=== PATIENT | female | born 1950 | race Caucasian/White ===

== ENCOUNTER → 2020-05-23 12:22 | Outpatient (CLI) | payer OTHER, SELFPAY ==
--- NOTE | ~2020-05-23 | XR_ITS ---
XR hip RT 2V w AP pelvis DATE: 05/23/2020 12:39 INDICATION: Right groin pain for 2 months, increasing over the past week TECHNIQUE: AP pelvis. AP and lateral views of right hip COMPARISON: None FINDINGS: No pelvic fracture or bone destruction is detected. The pubic symphysis and sacroiliac join ts are intact. There is bilateral hip osteoarthritis, greater on the right. There is bilateral hip joint chondrocalcinosis. Osteopenia. No fracture, dislocation, avascular necrosis or bone destruction of the right hip is detected. IMPRESSION: Bilateral hip osteoarthritic, right greater than left Bilateral hip joint chondrocalcinosis Osteopenia Reviewed, dictated and finalized at location B.
== END ==
PROVIDERS: PCP Physician Assistant; Visit Provider Physician Assistant
DX: M16.0 Bilateral primary osteoarthritis of hip (principal); M85.851 Other specified disorders of bone density and structure, right thigh; M85.852 Other specified disorders of bone density and structure, left thigh
CPT/HCPCS: 73502

== ENCOUNTER 2020-07-27 08:02 | Outpatient (CLI) | payer OTHER, SELFPAY ==
--- NOTE | ~2020-07-27 | XR_ITS ---
EXAMINATION: XR chest 2V DATE: 07/27/2020 09:00 INDICATION: Hypertension TECHNIQUE: PA and lateral views of the chest were obtained. COMPARISON: Chest radiograph dated 11/02/2008 FINDINGS: The lungs remain clear with no focal airspace opacities, pulmonary edema, pleural effusion or pneumot horax. Cardiomegaly. Three lead pacemaker/AICD seen with leads projecting over the expected locations of the right atrial appendage, apex of the right ventricle and overlying the left ventricle likely h aving traversed the coronary sinus. Mild thoracic spondylosis with minimal anterior wedging of a coup le mid thoracic vertebral bodies. IMPRESSION: 1. Cardiomegaly. No acute cardiopulmonary disease. Reviewed, dictated and finalized at location A.
[2020-07-27 08:58] LABS: Basophils Absolute Auto 0.1 K/mm3 (0.0-0.1); Eosinophils Absolute Auto 0.2 K/mm3 (0-0.3); Eosinophils Percent Auto 2.8 % (0-4.4); Hematocrit 37.2 % (37.0-47.0); Immature Granulocyte Absolute 0.01 K/mm3 (0.00-0.031); Immature Granulocyte Percent A 0.1 % (0-0.5); Lymphocytes Absolute Auto 2.37 K/mm3 (0.9-3.2); Lymphocytes Percent Auto 34.5 % (18.3-44.2); Mean Corpuscular HGB Conc 32.3 g/dl (32-36); Mean Corpuscular Hemoglobin 29.9 pg (26-34); Mean Corpuscular Volume 92.5 fl (80-100); Mean Platelet Volume 10.1 fl (7.4-10.4); Monocytes Absolute Auto 0.6 K/mm3 (0.1-0.6); Monocytes Percent Auto 8.5 % (2.6-8.5); Neutrophils Absolute Auto 3.6 K/mm3 (1.3-6.7); Neutrophils Percent Auto 53.1 % (45.5-73.1); Platelet Count Result 234 k/mm3 (150-375); Red Blood Count 4.02 M/mm3 (4.2-5.4); Red Cell Distribution Width 14.2 % (11.5-14.5); White Blood Count 6.9 K/mm3 (4.5-10.0)
[2020-07-27 09:20] LABS: Albumin Level 4.5 g/dL (3.5-5.1); Anion Gap 8 mmol/L (8-16); Blood Urea Nitrogen 34 mg/dL (7-17); Calcium 9.6 mg/dL (8.4-10.2); Carbon Dioxide 32 mmol/L (22-30); Chloride 97 mmol/L (98-107); Estimated Glomerular Filt Rate 49; Glucose 93 mg/dL (65-105); Potassium 4.2 mmol/L (3.4-5.0); Sodium 137 mmol/L (137-145)
[2020-07-27 09:36] LABS: Urine Cotinine NEGATIVE
== END 2020-07-27 08:03 | disposition home or self-care (01) ==
LOC: ANHSURGERY 08:04
PROVIDERS: PCP Physician Assistant; Visit Provider Orthopaedic Surgery
DX: M16.11 Unilateral primary osteoarthritis, right hip (principal); Z01.818 Encounter for other preprocedural examination; I51.7 Cardiomegaly; I10 Essential (primary) hypertension
CPT/HCPCS: 71046; 80048; 80307; 82040; 83036; 85025; 86850; 86900; 86901; 87070

== ENCOUNTER 2020-08-04 02:09 | Outpatient (CLI) | payer OTHER, SELFPAY ==
[2020-08-04 18:25] LABS: SARS-CoV-2 RNA PCR Negative
== END 2020-08-04 02:10 | disposition home or self-care (01) ==
LOC: ANHCOVIDDT 02:09
PROVIDERS: PCP Physician Assistant; Visit Provider Orthopaedic Surgery
DX: Z01.812 Encounter for preprocedural laboratory examination (principal); Z20.828 Contact with and (suspected) exposure to other viral communicable diseases
CPT/HCPCS: 87635; C9803; U0003

== ENCOUNTER 2020-08-09 09:27 | Observation (INO) | payer OTHER, SELFPAY ==
[2020-07-27 08:23] VITALS: BP 104/64; PULSE 74; RESP 20; TEMP 37.1; O2SAT 99
[2020-07-27 08:58] VITALS: BMI 25.8
--- NOTE | 2020-08-04 10:25 | PM.IMHP ---
H&P: HPI History of Present Illness Date/Time: 08/04/20 10:25 Chief complaint: OA right hip Narrative: Ely Renteria is a 70 year old female pt of Dr Brandon who presents today for an anterior right total hip arthroplasty. She has been having increasing pain and soreness in the right hip over the course of the last 4-5 months. She is typically very active individual but unfortunately due to the pain from the severe arthritis in the right hip this has been keeping her from a lot of daily activities. She has tried using a cane without improvement. She is unable take anti-inflammatories due to a cardiac history. She is miserable with regard to pain in the right hip. She has severe arthritis in the hip and at this point feel she would rather proceed with total hip arthroplasty rather continue nonsurgical treatment. Review of Systems Review of Systems: All systems reviewed & are unremarkable except as noted in HPI and below [facility] Social History Social History Smoking status: Former smoker Second hand tobacco smoke exposure: No Additional smoking assessment comments: 1PK/DAY/5YRS QUIT 2014 Substance use: never Spiritual care concerns: No Meds Home Medications and Allergies Home Medications Medication Instructions Recorded Confirmed Type aspirin [Aspir-81] 81 mg PO QAM 07/27/20 07/27/20 History atorvastatin 40 mg PO QAM 07/27/20 07/27/20 History carvedilol 6.25 mg PO QAM 07/27/20 07/27/20 History furosemide 40 mg PO QAM 07/27/20 07/27/20 History lisinopril 10 mg PO QAM 07/27/20 07/27/20 History Allergies Allergy/AdvReac Type Severity Reaction Status Date / Time Penicillins Allergy Mild rash Unverified 07/27/20 08:18 Exam Narrative: Exam Narrative: 70-year-old female very alert pleasant no distress. She is 5 ft 3 154 lb. She walks with a pronounced limp. Has no edema in either lower extremity. 2+ dorsalis pedis pulse in the right foot. She has prominent venous stasis skin changes in the anterior aspects of both tibias. Skin around the hip is normal. She has flexion of the right hip to 110?, internal rotation to 15? and external rotation is 30? all causing her moderate anterior and anterior medial groin pain. Stinchfield maneuver causes her pain extending into the proximal medial thigh. She has normal abduction strength in lateral position. She has severe tenderness over trochanteric bursa. Her right leg looks about 4 mm shorter than the left well leg spine. Resp: Auscultation: clear to auscultation bilaterally Cardio: Rate: regular rate Assessment and Plan Additional Plan 70-year-old female who has severe arthritis of the right hip with significant symptoms. Again she is feels that she is ready to proceed with total hip arthroplasty rather continue nonsurgical treatment. Surgical procedures well as risk and complications were discussed in detail and all questions were answered. Patient will see her primary care doctor as well as Cardiology for pre-surgical clearance. She does have a history of pacemaker and defibrillator implanted in 2014. Her nasal swab was negative. Her creatinine is elevated to 1.10 with a GFR of 49, the rest of her Chem panel was within normal limits. Hemoglobin is 12.0 and platelets at 234. she has had a recent echo done in July of this year. It shows her ejection fraction between 35 and 40% with moderate global hypokinesis of the left ventricle. She also has mild to moderate mitral valve regurgitation. She has been cleared through her president [employer] company who is also stated that she may stop her aspirin prior to surgery and she will do this 1 week prior to surgery.
[2020-08-07] VITALS (16 sets, daily range): BP systolic 89–129; BP diastolic 46–85; PULSE 59–100; RESP 12–18; TEMP 36.4–37.1; O2SAT 97–100
[2020-08-07] MEDS: ACETAMINOPHEN 500 MG TABLET 1000 MG PO ×3 (06:27→23:01)
[2020-08-07] MEDS: LACTATED RINGERS 1,000 ML 30 ML IV CONT ×3 (06:27→12:38)
[2020-08-07] MEDS: TRANEXAMIC ACID 1,000MG/ISO100 1,000 MG/100 ML BAG 200 MG IVPB (06:28)
--- NOTE | 2020-08-07 06:42 | WPDANESEPPF ---
Anes - Initial Pre Proc Eval Procedure: Operation Date: 08/07/20 07:30 Proposed Procedures p Right Total Hip Arthroplasty, Anterior Approach - Jeramie Izaguirre MD Date/Time: 08/07/20 06:42 Surgeon: Jeramie Izaguirre MD Pre Op Diagnosis: OA right hip Patient Data Age: 70 Gender: F Height: 1.64 m Weight: 69.3 kg Last Vital Signs Temp 37.1 C 07/27/20 08:23 Pulse 74 07/27/20 08:23 Resp 20 07/27/20 08:23 BP 104/64 07/27/20 08:23 Pulse Ox 99 07/27/20 08:23 Allergies Allergy/AdvReac Type Severity Reaction Status Date / Time Penicillins Allergy Mild rash Unverified 08/07/20 06:47 Home Medications Medication Instructions Recorded Confirmed Type aspirin [Aspir-81] 81 mg PO QAM 07/27/20 07/27/20 History atorvastatin 40 mg PO QAM 07/27/20 07/27/20 History carvedilol 6.25 mg PO QAM 07/27/20 07/27/20 History furosemide 40 mg PO QAM 07/27/20 07/27/20 History lisinopril 10 mg PO QAM 07/27/20 07/27/20 History Other Studies: echo 07/2020 - ef 35-40%, dyastolic dysfunction, mild/mod mr Patient hx anesthesia problems: none Family hx anesthesia problems: none PMFSH Past Medical History Medical History (Updated 08/07/20 @ 06:50 by Ambrocio Duran MD) Arthritis Cardiomyopathy ef 35-40% CKD (chronic kidney disease) stage 3, GFR 30-59 ml/min HTN (hypertension) Hypercholesterolemia Overweight (BMI 25.0-29.9) Pacemaker Surgical History Surgical History (Updated 08/07/20 @ 06:48 by Ambrocio Duran MD) AICD (automatic cardioverter/defibrillator) present Social History Social History Smoking status: Former smoker Second hand tobacco smoke exposure: No Additional smoking assessment comments: 1PK/DAY/5YRS QUIT 2014 Alcohol use details: 1 DRINK MAYBE EVERY MONTH OR 2 MONTHS Substance use: never Living arrangements: alone Spiritual care concerns: No Anes - Eval Final PreProcedure Day of Procedure 08/07/20 06:42 Patient weight: overweight Heart: regular rate and rhythm Lungs: clear to auscultation and normal air movement Airway: Mallampati scale class II Neurological: alert and oriented Last oral intake: >/= 8 hours ASA classification: IV Emergent: no Anesthetic plan: proceed Anesthesia type and monitoring: general LMA Informed Consent: The patient's anesthetic plan and its attendant risks and benefits were discussed with the patient/family/POA. Questions were solicited and answers provided to the satisfaction of the patient/family/POA.
--- NOTE | 2020-08-07 07:20 | WPDHPUPDATE1 ---
History and Physical Update Update Date/Time: 08/07/20 07:20 History and Physical has been reviewed, including an updated exam of the patient. There are NO changes in the patient's condition. Risks, benefits, and alternatives have been discussed and questions answered. Patient agrees to proceed with procedure.
[2020-08-07] MEDS: ceFAZolin 2 GM/D5W 50 ML 2 GM/50 ML BAG IVPB (07:34)
[2020-08-07] MEDS: ceFAZolin SODIUM 1 GM VIAL 3 GM IRRIGATION (08:45)
[2020-08-07] MEDS: ceFAZolin SODIUM 1 GM VIAL IV PUSH (10:57)
--- NOTE | 2020-08-07 11:05 | PM.PROC ---
Procedure Note - Detailed Date of procedure: 08/07/20 Pre-op diagnosis: OA right hip Post-op diagnosis: same Procedure performed: Direct anterior approach right total hip arthroplasty Description of procedure: Patient was brought to the operating room and general anesthesia was administered. She received 2 g of Ancef 1 g of vancomycin and 1 g of tranexamic acid preoperatively. The feet were covered with soft roll. The boots were applied and she was transferred to the [facility] table and the right hip prepped draped usual fashion. A 10 cm incision was made starting just 3 cm lateral to the anterior superior iliac spine extending distally. Dissection was carried down through the subcutaneous fat exposing the fascia over the tensor fascia renate muscle which was longitudinally incised and elevated off the anterior 1/2 of the TFL muscle. The interval between TFL and rectus femoris developed. We carefully isolated the branches of the ascending branch lateral femoral circumflex vessels and there were 3 branches the came off the main trunk and we ligated all 4 limbs with suture and divided. Retractor placed over the anteromedial capsule. The hip was abducted internally rotated and the gluteus minimus carefully elevated off the lateral capsule. standard capsulotomy performed. Femoral neck osteotomy made according to preoperative templating. Napkin ring of bone was removed the head was removed measured almost 47 mm in diameter. The labrum was excised remaining cartilage curetted. The leg was externally rotated and extended and we incised the interval between conjoined tendon and piriformis tendon which allowed the piriformis to flip posteriorly with minimal recession of the conjoined tendon. The leg was brought back into the horizontal position and we exposed the acetabulum medialized with a 44 Reamer and then went to the 47 Reamer which we medialized the medial wall which gave us reamed contact and the far anterior and posterior cueto as well as superiorly. A 48 mm pinnacle shell was chosen and fully seated. This obtained excellent purchase and a single screw was placed into the ilium.The cup was placed at 40? of abduction and anteversion such at the anterior wall the shell was a mm under the anterior wall and the posterior rim of the shell about 2 mm proud the posterior wall at the equator. The leg was extended and externally rotated after placing the table hook and the femur broached up to a size 4 which gave torsional stability as well as varus valgus stability. We trialed with the +5 standard neck and the hip was a bit tight and we looked at this under fluoro and I could see that my neck cut was still little bit high were and this made the right leg just a little bit long period the broach had excellent fill of the distal canal at the isthmus and was appropriately positioned. We used the concise Bjorn hammer device. We calcar planed and countersunk the broach another 4 mm and calcar planed again. At this point the broach was quite tight. We trialed with a +5 and this time we saw that we had matched our preoperative plan exactly and leg lengths looked equal. There was appropriate stability with excellent Shuck. We had appropriate soft tissue tension. We placed the size 4 Actis standard neck stem which seated fully with appropriate insertion pressure and was completely stable. The trunnion was cleaned and dried and we impacted the size +5 ceramic femoral head 32 mm diameter. Hip was reduced and stability reconfirmed and final intraoperative x-rays obtained. I felt we had tight enough it to allow her to be weight-bearing as tolerated. There were no cracks in the calcar. Local anesthetic cocktail was injected into the periarticular soft tissues. The wound again irrigated with antibiotic solution. The she received 1/3 g of Ancef 2nd g of tranexamic acid the time of will closure. Cell Saver recover 350. Anesthesia felt our blood loss was 450. She received 125 back
[2020-08-07] MEDS: fentaNYL CITRATE INJ (*CRX) 100 MCG/2 ML VIAL 25 MCG IV PUSH ×3 (11:41→12:40)
[2020-08-07] MEDS: ONDANSETRON INJ 4 MG/2 ML VIAL IV PUSH (11:53)
[2020-08-07] MEDS: HALOPERIDOL LACTATE 5 MG/ML VIAL 1 MG IV PUSH (12:26)
[2020-08-07 14:46] LABS: Hematocrit 31.4 % (37.0-47.0); Hemoglobin 10.1 g/dL (12.0-15.0)
--- NOTE | 2020-08-07 14:53 | PCPTNOTE ---
Attempted PT eval. Pt refused due to being tired and in too much pain. Explained importance of therapy and she still refused. Gloria ROMAN aware. Will try again tomorrow.
--- NOTE | 2020-08-07 15:54 | WPDCN ---
Assessment and Plan Assessment and plan (1) S/P total hip arthroplasty: Code(s): Z96.649 - Presence of unspecified artificial hip joint Status: Acute Assessment and Plan: -----postop day 0 of total right hip arthroplasty due to severe osteoarthritis. Patient's vitals are stable and hemoglobin is stable at 10.1. DVT prophylaxis with Eliquis per Dr. izaguirre. PT and OT will be ordered. Pain control with oxycodone and morphine as needed. (2) Cardiomyopathy: Code(s): I42.9 - Cardiomyopathy, unspecified Status: Acute Assessment and Plan: -----patient has EF of 35-40% and was cleared by Cardiology before surgery. Recommend restarting aspirin as soon as surgery agrees. She has a pacemaker/AED (3) CKD (chronic kidney disease) stage 3, GFR 30-59 ml/min: Code(s): N18.30 - Chronic kidney disease, stage 3 unspecified Status: Acute Assessment and Plan: -----last GFR 49. Stable (4) HTN (hypertension): Code(s): I10 - Essential (primary) hypertension Status: Acute Assessment and Plan: -----last blood pressure 107/85. Continue Coreg and Lasix. Home lisinopril has been held likely due to lower blood pressures. If her blood pressure is increased, consider adding back the lisinopril. (5) Hypercholesterolemia: Code(s): E78.00 - Pure hypercholesterolemia, unspecified Status: Acute Assessment and Plan: -----continue atorvastatin. Additional Plan Thank you for this consult. Please do not hesitate to reach out if you have any questions. We will follow along with you. Supervising physician for this consult is Dr. Mcgee. [facility] Data of Consult Date/Time: 08/07/20 15:54 Requesting Physician: Jeramie Izaguirre MD Primary Care Provider: Darby Moreira, PA Consult Narrative Narrative: Ely Renteria is a 70 year old female with a past medical history of cardiomyopathy with an EF around 40%, hypertension, CKD, and hyperlipidemia who presented for outpatient right hip arthroplasty. The patient states that she has had arthritis pain in the right hip on and off for a couple years but has been worse since March. She tried oral medication and physical therapy which did not help. In the last couple weeks she started walking with a cane because of the pain. She is now status post hip arthroplasty and is having pain after surgery. She describes this pain as a constant 15/10 pain. She denies nausea, vomiting, fevers, chills, abdominal pain, diarrhea, chest pain, shortness of breath, headaches, change in vision, numbness or tingling. She states when she leaves here she is going to have a friend stay at her house to help her with her recovery. She has 1 step goes into her house but no other stairs in the house. She states that she has never had coronary artery disease requiring stenting or stroke but is on aspirin for heart failure. Review of Systems Review of Systems: All systems reviewed & are unremarkable except as noted in HPI and below PMFSH Past Medical History Medical History Arthritis Cardiomyopathy ef 35-40% CKD (chronic kidney disease) stage 3, GFR 30-59 ml/min HTN (hypertension) Hypercholesterolemia Overweight (BMI 25.0-29.9) Pacemaker Surgical History Surgical History (Updated 08/07/20 @ 16:19 by Liset Castillo PA-C) AICD (automatic cardioverter/defibrillator) present History of cataract surgery History of hysterectomy For benign reasons Family History Family History (Updated 08/07/20 @ 16:20 by Liset Castillo PA-C) Mother Heart disease Father Lung cancer Due to assess Social History Social History (Updated 08/07/20 @ 16:20 by Liset Castillo PA-C) Social History: Patient rarely drinks alcohol and no longer smokes. She quit 5 years ago. 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 She would like to be a full code. S
[2020-08-07] MEDS: oxyCODONE HCL (*CRX) 2.5 MG TAB IR PO ×4 (15:58→23:04)
[2020-08-07] MEDS: SENNA/DOCUSATE SODIUM TABLET 2 TAB PO (15:59)
[2020-08-07] MEDS: MORPHINE SULFATE (*CRX) 2 MG/ML INJ IV PUSH (20:27)
[2020-08-07] MEDS: FAMOTIDINE 20 MG TABLET PO (20:28)
[2020-08-08] VITALS (14 sets, daily range): BP systolic 97–131; BP diastolic 60–107; PULSE 77–95; RESP 16; TEMP 36.2–36.9; O2SAT 98–100
[2020-08-08] MEDS: oxyCODONE HCL (*CRX) 2.5 MG TAB IR PO ×3 (00:58→05:22)
[2020-08-08 05:16] LABS: Basophils Absolute Auto 0.1 K/mm3 (0.0-0.1); Basophils Percent Auto 0.5 % (0.2-1.2); Hematocrit 27.9 % (37.0-47.0); Hemoglobin 9.1 g/dL (12.0-15.0); Immature Granulocyte Absolute 0.22 K/mm3 (0.00-0.031); Lymphocytes Absolute Auto 2.21 K/mm3 (0.9-3.2); Mean Corpuscular HGB Conc 32.6 g/dl (32-36); Mean Corpuscular Hemoglobin 29.9 pg (26-34); Mean Corpuscular Volume 91.8 fl (80-100); Mean Platelet Volume 10.8 fl (7.4-10.4); Monocytes Absolute Auto 2.1 K/mm3 (0.1-0.6); Monocytes Percent Auto 9.4 % (2.6-8.5); Neutrophils Absolute Auto 17.5 K/mm3 (1.3-6.7); Neutrophils Percent Auto 79.1 % (45.5-73.1); Platelet Count Result 202 k/mm3 (150-375); Red Blood Count 3.04 M/mm3 (4.2-5.4); Red Cell Distribution Width 14.5 % (11.5-14.5); White Blood Count 22.2 K/mm3 (4.5-10.0)
[2020-08-08 05:21] LABS: Anion Gap 8 mmol/L (8-16); Blood Urea Nitrogen 17 mg/dL (7-17); Calcium 8.8 mg/dL (8.4-10.2); Carbon Dioxide 26 mmol/L (22-30); Chloride 100 mmol/L (98-107); Estimated CRCL calculation 44 ml/min; Estimated Glomerular Filt Rate > 60; Glucose 132 mg/dL (65-105); Magnesium 2.3 mg/dL (1.6-2.3); Potassium 4.4 mmol/L (3.4-5.0); Sodium 134 mmol/L (137-145)
[2020-08-08] MEDS: ACETAMINOPHEN 500 MG TABLET 1000 MG PO ×3 (05:23→17:24)
[2020-08-08 06:22] LABS: Vitamin D 25 Hydroxy 49.8 ng/mL
--- NOTE | 2020-08-08 06:24 | PM.PNORT ---
Progress Note: A&P Additional Plan POD 1 alert was having a lot of pain yesterday-was unable to get up with PT. Doing better this am-will increase oxy to 5 mg. wd-dry, drain is out. pt was up to restroom this am, NVI. Pt will work with PT today,plan to send home this afternoon if doing well Subjective Subjective Date/Time Seen: 08/08/20 06:24 Objective Data Vital Signs Vital Signs: Vital Signs - 24 hr 08/07/20 06:53 08/07/20 11:25 08/07/20 11:40 Temperature 36.4 C L 36.7 C Pulse Rate 65 69 67 Respiratory Rate 18 14 14 Blood Pressure 129/54 L 89/58 L 101/58 L Pulse Oximetry 100 100 100 08/07/20 11:55 08/07/20 12:10 08/07/20 12:25 Temperature Pulse Rate 60 65 63 Respiratory Rate 12 14 14 Blood Pressure 117/75 128/54 L 120/63 Pulse Oximetry 100 100 99 08/07/20 12:40 08/07/20 12:55 08/07/20 13:08 Temperature 36.4 C L Pulse Rate 60 60 66 Respiratory Rate 14 12 14 Blood Pressure 123/65 116/59 L 115/55 L Pulse Oximetry 99 98 98 08/07/20 13:16 08/07/20 13:44 08/07/20 15:01 Temperature 36.8 C 36.5 C 36.7 C Pulse Rate 60 59 L 61 Respiratory Rate 14 15 18 Blood Pressure 103/50 L 120/46 L 107/85 Pulse Oximetry 99 99 98 08/07/20 16:00 08/07/20 18:44 08/07/20 20:00 Temperature 37.1 C Pulse Rate 61 63 100 Respiratory Rate 14 Blood Pressure 123/56 L Pulse Oximetry 97 08/07/20 23:01 08/08/20 00:00 08/08/20 03:01 Temperature 36.5 C 36.2 C L Pulse Rate 89 81 82 Respiratory Rate 16 16 Blood Pressure 110/70 118/68 Pulse Oximetry 98 100 08/08/20 04:00 Temperature Pulse Rate 77 Respiratory Rate Blood Pressure Pulse Oximetry Intake/Output Intake/Output: Intake & Output 08/05/20 08/06/20 08/07/20 08/08/20 23:59 23:59 23:59 23:59 Intake Total 1335 1000 Balance 1335 1000 Meds/Results Medications: Active Medications Generic Name Dose Route Start Last Admin Trade Name Freq PRN Reason Stop Dose Admin Acetaminophen 1,000 mg 08/07/20 13:16 08/08/20 05:23 Acetaminophen 500 Mg Tablet PO 1,000 mg Q6HR BROOK Administration Al Hydrox/Mg Hydrox/Simethicone 30 ml 08/07/20 13:16 Mag Hydrox/Al Hydrox/Simeth 30 Ml Udc PO Q6H PRN Indigestion Apixaban 2.5 mg 08/08/20 09:00 Apixaban 2.5 Mg Tablet PO 09/11/20 21:01 Q12HR BROOK Atorvastatin Calcium 40 mg 08/08/20 09:00 Atorvastatin 40 Mg Tablet PO QAM BROOK Bisacodyl 10 mg 08/07/20 13:16 Bisacodyl 10 Mg Suppository RECTAL DAILY PRN Constipation Carvedilol 6.25 mg 08/08/20 09:00 Carvedilol 6.25 Mg Tablet PO QAM BROOK Famotidine 20 mg 08/07/20 21:00 08/07/20 20:28 Famotidine 20 Mg Tablet PO 20 mg Q12HR BROOK Administration Furosemide 40 mg 08/08/20 09:00 Furosemide 40 Mg Tablet PO QAM BROOK Hydroxyzine HCl 50 mg 08/07/20 13:16 Hydroxyzine Hcl 25 Mg Tablet PO Q4H PRN Itching Vancomycin HCl 1,000 mg in 250 mls @ 250 mls/hr 08/08/20 06:00 08/08/20 05:24 Vancomycin 1,000 Mg/D5w 250 Ml IVPB 08/08/20 06:59 250 mls/hr Q24H BROOK Administration Cefazolin Sodium 1 gm in 50 mls @ 100 mls/hr 08/07/20 15:00 08/07/20 23:31 Ancef 1 Gm/D5w 50 Ml Pm IVPB 08/08/20 07:29 Infused Q8H BROOK Infusion Magnesium Hydroxide 30 ml 08/07/20 13:16 Magnesium Hydroxide Susp 30 Ml Udc PO BID PRN Constipation Morphine Sulfate 2 mg 08/07/20 13:16 08/07/20 20:27 Morphine Sulfate (*Crx) 2 Mg/Ml Inj IV PUSH 2 mg Q3H PRN Administration Pain Rated 7-10 Naloxone HCl 0.1 mg 08/07/20 13:16 Naloxone Hcl 0.4 Mg/Ml Vial IV PUSH Q2M PRN Opiate Reversal Ondansetron HCl 4 mg 08/07/20 13:16 Ondansetron Inj 4 Mg/2 Ml Vial IV PUSH Q4H PRN Nausea And Vomiting Oxycodone HCl 2.5 mg 08/07/20 13:16 08/08/20 03:08 Oxycodone Hcl (*Crx) 2.5 Mg Tab Ir PO 2.5 mg Q4H PRN Administration Pain Rated 4-6 Oxycodone HCl 2.5 mg 08/07/20 13:16 08/08/20 05:22 Oxycodone Hcl (
--- NOTE | 2020-08-08 06:31 | PM.DS ---
DS: Admitting Diagnosis Admitting Diagnosis Admitting Diagnosis: OA right hip DS: Summary Time Spent with Patient Time attestation: 70-year-old female who underwent right anterior total hip arthroplasty by Dr. Izaguirre on 08/07/2020. Underwent the procedure without any complications. Postoperatively she has been afebrile vital signs have been stable. Her wound is dry. Her drain is out. She is weight-bearing as tolerated with a walker for the 1st month. She is on Eliquis for DVT prophylaxis. We are not using anti-inflammatories on her due to her cardiac history. She is on schedule Tylenol as well as oxycodone 5 mg for pain control. We did check a vitamin D postop which is 49.8. Patient is going to work with therapy on 08/08/2020, she is doing well and able to get up and move around fairly comfortably we will plan on sending her home later that day. She is unable to work with therapy the day of surgery due to increased pain. when I saw her the morning of postop day 1 she was comfortable and doing well. If she is found to have extreme difficulty and pain working with therapy that we may need to keep her additional day for continued pain control. DS: Data Data Completed and Pending Labs on day of discharge: Labs from last 24 hours 08/08/20 08/08/20 08/08/20 04:48 04:48 04:48 WBC Pending RBC Pending Hgb Pending Hct Pending MCV Pending MCH Pending MCHC Pending RDW Pending Plt Count Pending MPV Pending Immature Gran % (Auto) Pending Neut % (Auto) Pending Lymph % (Auto) Pending [place] % (Auto) Pending Eos % (Auto) Pending Baso % (Auto) Pending Lymph # (Auto) Pending [place] # (Auto) Pending Eos # (Auto) Pending Baso # (Auto) Pending Abs Immat Gran (auto) Pending Absolute Neuts (auto) Pending Absolute Nucleated RBC Pending Nucleated RBC % Pending Sodium 134 L Potassium 4.4 Chloride 100 Carbon Dioxide 26 Anion Gap 8 BUN 17 D Creatinine 0.90 Estim Creat Clear Calc 44 Estimated GFR > 60 Glucose 132 H Calcium 8.8 Magnesium 2.3 Vitamin D 25-Hydroxy 49.8 08/07/20 14:38 WBC RBC Hgb 10.1 L Hct 31.4 L MCV MCH MCHC RDW Plt Count MPV Immature Gran % (Auto) Neut % (Auto) Lymph % (Auto) [place] % (Auto) Eos % (Auto) Baso % (Auto) Lymph # (Auto) [place] # (Auto) Eos # (Auto) Baso # (Auto) Abs Immat Gran (auto) Absolute Neuts (auto) Absolute Nucleated RBC Nucleated RBC % Sodium Potassium Chloride Carbon Dioxide Anion Gap BUN Creatinine Estim Creat Clear Calc Estimated GFR Glucose Calcium Magnesium Vitamin D 25-Hydroxy Discharge Plan Discharge Patient Disposition: Home, Self-Care Discharge Instructions: JERAMIE IZAGUIRRE M.D [facility] [address] [place] [address] POST-OPERATIVE DISCHARGE INSTRUCTIONS ANTERIOR TOTAL HIP ARTHROPLASTY 1. Move toes/feet up and down every hour while awake. 2. Be up walking every hour while awake. 3. Use cane in hand opposite of side of hip surgery or walker as comfort allows. Avoid sitting in a chair unless eating, receiving visitors or using the toilet. 4. When resting, lie on back with leg elevated above heart to minimize swelling. Significant swelling could indicate a blood clot and if this occurs, call the office (or go to the ER) to have a venous ultrasound performed. 5. Wound Care: Keep dry sponge on wound for 2 weeks. Use minimal tape. 6. Follow weight bearing status as instructed. 7. May shower with dressing off. Patient Instructions: Antibiotic Form, Apixaban (By mouth), Precautions after Total Joint Replacement Surgery (GEN), Total Hip Replacement (GEN) Follow-up/Referrals: Jeramie Izaguirre MD [Physician] - Keep Reg. Scheduled Appt. Discharge Medications: New acetaminophen 500 mg Tablet 1,000 mg PO Q6HR Qty: 90
[2020-08-08] MEDS: oxyCODONE HCL (*CRX) 5 MG TAB IR PO ×5 (06:47→22:43)
[2020-08-08] MEDS: FAMOTIDINE 20 MG TABLET PO ×2 (09:02→21:34)
[2020-08-08] MEDS: SENNA/DOCUSATE SODIUM TABLET 2 TAB PO ×2 (09:02→17:24)
[2020-08-08] MEDS: carvediloL 6.25 MG TABLET PO (09:02)
[2020-08-08] MEDS: polyethylene glycoL 3350 17 GM POWD.PACK PO (09:02)
[2020-08-08] MEDS: ATORVASTATIN 40 MG TABLET PO (09:03)
[2020-08-08] MEDS: FUROSEMIDE 40 MG TABLET PO (09:03)
[2020-08-08] MEDS: APIXABAN 2.5 MG TABLET PO ×2 (09:03→21:35)
--- NOTE | 2020-08-08 09:41 | PM.IMPN ---
Progress Note: A&P Assessment and Plan (1) S/P total hip arthroplasty: Qualifiers: Laterality: right Qualified Code(s): Z96.641 - Presence of right artificial hip joint Code(s): Z96.649 - Presence of unspecified artificial hip joint Status: Acute Assessment and Plan: POD#1 s/p elective right total hip arthroplasty due to severe OA. Wound care, pain control, DVT prophylaxis per the primary service. Continue PT/OT. Leukocytosis noted, suspect associated with stress reaction from surgery but will recheck in AM if she is still here. No evidence of acute infection. 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 Known EF 35-40%; cleared by Dr Santana prior to surgery. She has pacer/AED. Continue beta blockade and add back AGUSTIN. (3) CKD (chronic kidney disease) stage 3, GFR 30-59 ml/min: Qualifiers: Chronic kidney disease stage 3 subtype: unspecified whether 3a or 3b Qualified Code(s): N18.30 - Chronic kidney disease, stage 3 unspecified Code(s): N18.30 - Chronic kidney disease, stage 3 unspecified Status: Chronic Assessment and Plan: Stable. Cr 0.9 today. (4) HTN (hypertension): Qualifiers: Hypertension type: essential hypertension Qualified Code(s): I10 - Essential (primary) hypertension Code(s): I10 - Essential (primary) hypertension Status: Chronic Assessment and Plan: Home lisinopril had been held secondary to low BP. BP rising this AM, will add back her home lisinopril. Monitor BP and adjust treatment as needed. (5) Hypercholesterolemia: Code(s): E78.00 - Pure hypercholesterolemia, unspecified Status: Chronic Assessment and Plan: Continue home statin therapy. Additional Plan Thank you for allowing me to participate in this patient's care. We will follow with you while she is here. Subjective Date/time seen: 08/08/20 0830 Interval history: Ms. Renteria is a 70yo F seen in follow up POD#1 right total hip arthroplasty. She reports feeling okay so far this morning and rates her right hip pain at a 5/10 at time of my exam. She had some nausea/vomiting immediately postoperatively yesterday but this is resolved today. No BM yet but has passed flatus. She denies any chest pain or shortness of breath. Review of Systems Review of Systems: All systems reviewed & are unremarkable except as noted in HPI and below Exam Narrative: Exam Narrative: General: Female resting comfortably supine in bed in no acute distress. HEENT: Normocephalic, EOMI, oral mucosa moist. Cardiovascular: Rate and rhythm are regular. Telemetry review shows paced rhythm HR in 70s. Respiratory: Lungs clear to auscultation all ruiz. Non-labored breathing. Abdomen: Soft, non-tender, non-distended, bowel sounds present. Extremities: Peripheral pulses intact. No edema. Right lower extremity is neurovascularly intact distal to the surgical site. Neuro: No focal neurological deficits. Speech is clear. Objective Data Vital Signs Vital Signs: Last Vital Signs Temp 98.1 F 08/08/20 10:00 Pulse 91 08/08/20 12:00 Resp 16 08/08/20 10:00 BP 131/107 H 08/08/20 10:00 Pulse Ox 99 08/08/20 10:00 Intake/Output Intake/Output: Intake & Output 08/05/20 08/06/20 08/07/20 08/08/20 23:59 23:59 23:59 23:59 Intake Total 1335 1660 Output Total 100 Balance 1335 1560 Meds/Results Medications: Active Medications Generic Name Dose Route Start Last Admin Trade Name Freq PRN Reas
--- NOTE | 2020-08-08 12:01 | P.PNAN_ITS ---
Anes - Prog Note Post-Op Date/Time: 08/08/20 12:01 Cardiovascular status: normal Respiratory status: normal Airway patency: baseline Mental status: baseline Post-Op hydration status: normal Vital Signs: Last Vital Signs Temp 36.7 C 08/08/20 10:00 Pulse 82 08/08/20 10:00 Resp 16 08/08/20 10:00 BP 131/107 H 08/08/20 10:00 Pulse Ox 99 08/08/20 10:00 Pain Score (VAS): 2 I/O: Intake & Output 08/07/20 08/08/20 08/08/20 23:59 07:59 15:59 Intake Total 660 1300 360 Output Total 100 Balance 660 1200 360 Laboratory Tests 08/08/20 04:48 08/08/20 04:48 08/07/20 08/08/20 08/08/20 14:38 04:48 04:48 WBC 22.2 H RBC 3.04 L Hgb 10.1 L 9.1 L Hct 31.4 L 27.9 L MCV 91.8 MCH 29.9 MCHC 32.6 RDW 14.5 Plt Count 202 MPV 10.8 H Immature Gran % (Auto) 1.0 H Neut % (Auto) 79.1 H Lymph % (Auto) 10.0 L [place] % (Auto) 9.4 H Eos % (Auto) 0.0 Baso % (Auto) 0.5 Lymph # (Auto) 2.21 [place] # (Auto) 2.1 H Eos # (Auto) 0.0 Baso # (Auto) 0.1 Abs Immat Gran (auto) 0.22 H Absolute Neuts (auto) 17.5 H Absolute Nucleated RBC 0.0 Nucleated RBC % 0.0 Sodium 134 L Potassium 4.4 Chloride 100 Carbon Dioxide 26 Anion Gap 8 BUN 17 D Creatinine 0.90 Estim Creat Clear Calc 44 Estimated GFR > 60 Glucose 132 H Calcium 8.8 Magnesium 2.3 Vitamin D 25-Hydroxy 08/08/20 04:48 WBC RBC Hgb Hct MCV MCH MCHC RDW Plt Count MPV Immature Gran % (Auto) Neut % (Auto) Lymph % (Auto) [place] % (Auto) Eos % (Auto) Baso % (Auto) Lymph # (Auto) [place] # (Auto) Eos # (Auto) Baso # (Auto) Abs Immat Gran (auto) Absolute Neuts (auto) Absolute Nucleated RBC Nucleated RBC % Sodium Potassium Chloride Carbon Dioxide Anion Gap BUN Creatinine Estim Creat Clear Calc Estimated GFR Glucose Calcium Magnesium Vitamin D 25-Hydroxy 49.8 Post-procedural complaints: none Patient Feedback: Patient satisfied with anesthetic care.
[2020-08-08] MEDS: ONDANSETRON INJ 4 MG/2 ML VIAL IV PUSH ×2 (12:08→17:24)
[2020-08-09] VITALS (19 sets, daily range): BP systolic 86–113; BP diastolic 36–65; PULSE 65–94; RESP 14–20; TEMP 36.2–38.2; O2SAT 92–100
--- NOTE | ~2020-08-09 | XR_ITS ---
EXAMINATION: XR surgery orthopedic DATE: 08/07/2020 11:00 INDICATION: Right hip arthroplasty TECHNIQUE: AP fluoroscopic view of the right hip performed intraoperatively. 57 seconds of fluoroscop y. FINDINGS: There is a right total hip arthroplasty in expected position. Subcutaneous gas with soft t issue swelling are consistent with recent surgery. IMPRESSION: 1. Recent right total hip arthroplasty. Reviewed, dictated and finalized at location B.
--- NOTE | ~2020-08-09 | XR_ITS ---
EXAMINATION: XR hip RT 1V w AP pelvis DATE: 08/07/2020 11:26 INDICATION: Right hip arthroplasty. Postop. TECHNIQUE: An anteroposterior view of the pelvis and single view of right hip were obtained. COMPARISON: Pelvis and right hip radiographs 05/23/20 FINDINGS: There is a total right hip arthroplasty in near-anatomic alignment. No fracture. There is m ild left hip osteoarthritis. There is gas in the soft tissues around the right hip, consistent with r ecent surgery. A surgical drain is noted. IMPRESSION: 1. Total right hip arthroplasty in near-anatomic alignment. 2. Mild left hip osteoarthritis. Reviewed, dictated and finalized at location A.
[2020-08-09] MEDS: ACETAMINOPHEN 500 MG TABLET 1000 MG PO ×4 (00:29→18:01)
[2020-08-09] MEDS: oxyCODONE HCL (*CRX) 5 MG TAB IR PO ×2 (02:48→06:23)
[2020-08-09 06:21] LABS: Basophils Absolute Auto 0.1 K/mm3 (0.0-0.1); Basophils Percent Auto 0.6 % (0.2-1.2); Eosinophils Absolute Auto 0.3 K/mm3 (0-0.3); Eosinophils Percent Auto 1.9 % (0-4.4); Hematocrit 22.5 % (37.0-47.0); Hemoglobin 7.3 g/dL (12.0-15.0); Immature Granulocyte Absolute 0.11 K/mm3 (0.00-0.031); Immature Granulocyte Percent A 0.7 % (0-0.5); Lymphocytes Absolute Auto 2.31 K/mm3 (0.9-3.2); Lymphocytes Percent Auto 15.4 % (18.3-44.2); Mean Corpuscular HGB Conc 32.4 g/dl (32-36); Mean Corpuscular Hemoglobin 29.7 pg (26-34); Mean Corpuscular Volume 91.5 fl (80-100); Monocytes Absolute Auto 1.4 K/mm3 (0.1-0.6); Monocytes Percent Auto 9.2 % (2.6-8.5); Neutrophils Absolute Auto 10.9 K/mm3 (1.3-6.7); Neutrophils Percent Auto 72.2 % (45.5-73.1); Platelet Count Result 148 k/mm3 (150-375); Red Blood Count 2.46 M/mm3 (4.2-5.4); Red Cell Distribution Width 14.6 % (11.5-14.5)
--- NOTE | 2020-08-09 07:52 | PM.PNORT ---
Progress Note: A&P Additional Plan POD 2 pt is still having a lot of nausea geyting up from bed. will check orthostatic BP. Hgb is down to 7.3 this am- maybe somewhat dilutional but will recheck CBC at 4 pm today, also will check BMP now as well as guaiac stool to look for blood loss, will plan to keep pt till tomorrow , she has EF of 35% and it would be best to monitor her for another day , pt having no SOB or CP, no EKG changes Subjective Subjective Date/Time Seen: 08/09/20 07:52 Objective Data Vital Signs Vital Signs: Vital Signs - 24 hr 08/08/20 08:00 08/08/20 09:02 08/08/20 10:00 Temperature 36.7 C Pulse Rate 92 92 82 Respiratory Rate 16 Blood Pressure 131/107 H Pulse Oximetry 99 08/08/20 12:00 08/08/20 12:56 08/08/20 14:00 Temperature 36.8 C Pulse Rate 91 79 Respiratory Rate 16 Blood Pressure 104/60 108/62 Pulse Oximetry 99 08/08/20 16:20 08/08/20 18:00 08/08/20 20:00 Temperature 36.9 C Pulse Rate 95 78 83 Respiratory Rate 16 Blood Pressure 108/66 Pulse Oximetry 98 08/08/20 21:54 08/09/20 00:00 08/09/20 04:00 Temperature 36.3 C L Pulse Rate 77 78 84 Respiratory Rate 16 Blood Pressure 97/62 L Pulse Oximetry 100 08/09/20 05:37 Temperature 36.9 C Pulse Rate 76 Respiratory Rate 16 Blood Pressure 109/50 L Pulse Oximetry 100 Intake/Output Intake/Output: Intake & Output 08/06/20 08/07/20 08/08/20 08/09/20 23:59 23:59 23:59 23:59 Intake Total 1335 2650 400 Output Total 650 600 Balance 1335 2000 -200 Meds/Results Medications: Active Medications Generic Name Dose Route Start Last Admin Trade Name Freq PRN Reason Stop Dose Admin Acetaminophen 1,000 mg 08/07/20 13:16 08/09/20 06:23 Acetaminophen 500 Mg Tablet PO 1,000 mg Q6HR BROOK Administration Al Hydrox/Mg Hydrox/Simethicone 30 ml 08/07/20 13:16 Mag Hydrox/Al Hydrox/Simeth 30 Ml Udc PO Q6H PRN Indigestion Apixaban 2.5 mg 08/08/20 09:00 08/08/20 21:35 Apixaban 2.5 Mg Tablet PO 09/11/20 21:01 2.5 mg Q12HR BROOK Administration Atorvastatin Calcium 40 mg 08/08/20 09:00 08/08/20 09:03 Atorvastatin 40 Mg Tablet PO 40 mg QAM BROOK Administration Bisacodyl 10 mg 08/07/20 13:16 Bisacodyl 10 Mg Suppository RECTAL DAILY PRN Constipation Carvedilol 6.25 mg 08/08/20 09:00 08/08/20 09:02 Carvedilol 6.25 Mg Tablet PO 6.25 mg QAM BROOK Administration Famotidine 20 mg 08/07/20 21:00 08/08/20 21:34 Famotidine 20 Mg Tablet PO 20 mg Q12HR BROOK Administration Furosemide 40 mg 08/08/20 09:00 08/08/20 09:03 Furosemide 40 Mg Tablet PO 40 mg QAM BROOK Administration Hydroxyzine HCl 50 mg 08/07/20 13:16 Hydroxyzine Hcl 25 Mg Tablet PO Q4H PRN Itching Lisinopril 10 mg 08/08/20 12:55 08/08/20 13:51 Lisinopril 10 Mg Tablet PO Not Given QAM BROOK Magnesium Hydroxide 30 ml 08/07/20 13:16 Magnesium Hydroxide Susp 30 Ml Udc PO BID PRN Constipation Morphine Sulfate 2 mg 08/07/20 13:16 08/07/20 20:27 Morphine Sulfate (*Crx) 2 Mg/Ml Inj IV PUSH 2 mg Q3H PRN Administration Pain Rated 7-10 Naloxone HCl 0.1 mg 08/07/20 13:16 Naloxone Hcl 0.4 Mg/Ml Vial IV PUSH Q2M PRN Opiate Reversal Ondansetron HCl 4 mg 08/07/20 13:16 08/08/20 17:24 Ondansetron Inj 4 Mg/2 Ml Vial IV PUSH 4 mg Q4H PRN Administration Nausea And Vomiting Oxycodone HCl 5 mg 08/08/20 06:30 08/09/20 06:23 Oxycodone Hcl (*Crx) 5 Mg Tab Ir PO 5 mg Q4H BROOK Administration Oxycodone HCl 5 mg 08/08/20 06:27 Oxycodone Hcl (*Crx) 5 Mg Tab Ir PO Q4H PRN Pain Rated 7-10 Polyethylene Glycol 17 gm 08/08/20 09:00 08/08/20 09:02 Polyethylene Glycol 3350 17 Gm Powd.Pack PO 17 gm QAM BROOK Administration Senna/Docusate Sodium 2 tab 08/07/20 17:00 08/08/20 17:24 Senna/Docusate Sodium Tablet PO 2 tab BID BROOK Administration Radiology Result
[2020-08-09 08:05] LABS: Anion Gap 5 mmol/L (8-16); Blood Urea Nitrogen 15 mg/dL (7-17); Calcium 8.3 mg/dL (8.4-10.2); Carbon Dioxide 30 mmol/L (22-30); Chloride 101 mmol/L (98-107); Estimated CRCL calculation 44 ml/min; Estimated Glomerular Filt Rate > 60; Glucose 94 mg/dL (65-105); Potassium 3.8 mmol/L (3.4-5.0); Sodium 136 mmol/L (137-145)
[2020-08-09] MEDS: polyethylene glycoL 3350 17 GM POWD.PACK PO (08:23)
[2020-08-09] MEDS: SENNA/DOCUSATE SODIUM TABLET 2 TAB PO ×2 (08:23→18:01)
[2020-08-09] MEDS: lisinopriL 10 MG TABLET PO (08:23)
[2020-08-09] MEDS: carvediloL 6.25 MG TABLET PO (08:23)
[2020-08-09] MEDS: FUROSEMIDE 40 MG TABLET PO (08:23)
[2020-08-09] MEDS: APIXABAN 2.5 MG TABLET PO ×2 (08:23→21:22)
[2020-08-09] MEDS: FAMOTIDINE 20 MG TABLET PO ×2 (08:23→21:22)
[2020-08-09] MEDS: ATORVASTATIN 40 MG TABLET PO (08:23)
[2020-08-09] MEDS: ONDANSETRON INJ 4 MG/2 ML VIAL IV PUSH (12:00)
--- NOTE | 2020-08-09 12:07 | PM.IMPN ---
Progress Note: A&P Assessment and Plan (1) S/P total hip arthroplasty: Qualifiers: Laterality: right Qualified Code(s): Z96.641 - Presence of right artificial hip joint Code(s): Z96.649 - Presence of unspecified artificial hip joint Status: Acute Assessment and Plan: POD#2 s/p elective right total hip arthroplasty due to severe OA. Wound care, pain control, DVT prophylaxis per the primary service. Continue PT/OT. Leukocytosis noted, improved; suspect associated with stress reaction from surgery but will recheck in AM if she is still here. No evidence of acute infection. 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 Known EF 35-40%; cleared by Dr Santana prior to surgery. She has pacer/AED. Continue beta blockade and AGUSTIN. (3) CKD (chronic kidney disease) stage 3, GFR 30-59 ml/min: Qualifiers: Chronic kidney disease stage 3 subtype: unspecified whether 3a or 3b Qualified Code(s): N18.30 - Chronic kidney disease, stage 3 unspecified Code(s): N18.30 - Chronic kidney disease, stage 3 unspecified Status: Chronic Assessment and Plan: Stable. Cr 0.9 today. (4) HTN (hypertension): Qualifiers: Hypertension type: essential hypertension Qualified Code(s): I10 - Essential (primary) hypertension Code(s): I10 - Essential (primary) hypertension Status: Chronic Assessment and Plan: Home lisinopril had been held secondary to low BP. BP improved and lisinopril has been resumed Monitor BP and adjust treatment as needed. (5) Hypercholesterolemia: Code(s): E78.00 - Pure hypercholesterolemia, unspecified Status: Chronic Assessment and Plan: Continue home statin therapy. Additional Plan Thank you for allowing me to participate in this patient's care. We will follow with you while she is here. Subjective Date/time seen: 08/09/20 12:07 This is a Hospitalist Consult Progress Note Interval history: Ms. Renteria is a 70yo F seen in follow up POD#2 right total hip arthroplasty. She reports feeling nauseous and what she describes as blah today. She is concerned about her downtrending H&H. Pain is somewhat better today. Also feeling worn out from therapy. Has subjective fevers but no chills/sweats. No other complaints at this time. No BM yet but has passed flatus. Denies cp/palpitations, sob/cough, abd pain,dysuria, hematuria, calf pain/swelling. Review of Systems Review of Systems: All systems reviewed & are unremarkable except as noted in HPI and below Exam Narrative: Exam Narrative: General: Female resting comfortably in semi-rudd's in bed in no acute distress. HEENT: Normocephalic, EOMI, oral mucosa moist. Cardiovascular: Rate and rhythm are regular. Telemetry review shows paced rhythm HR in 70s. Respiratory: Lungs clear to auscultation in anterolateral lung ruiz. Non-labored breathing. Abdomen: Soft, non-tender, non-distended, bowel sounds present but hypoactive Extremities: Peripheral pulses intact. No edema. Right lower extremity is neurovascularly intact distal to the surgical site. NTTP b/l calves Neuro: No focal neurological deficits. Speech is clear. Objective Data Vital Signs Vital Signs: Last Vital Signs Temp 97.1 F L 08/09/20 10:15 Pulse 88 08/09/20 10:15 Resp 18 08/09/20 10:15 BP 113/57 L 08/09/20 10:15 Pulse Ox 100 08/09/20 10:15 Intake/Output Intake/Output: Intake & Output 08/06/20 08/07/20 08/08/20 08/09/20 23:59 23:59 23:59 23:59 Int
--- NOTE | 2020-08-09 14:16 | PC.NURSE ---
On 08/09/20, the student, Alethea Baptiste, provided care and completed [facility] documentation on this patient. I have reviewed the student's documentation and agree with the findings.
[2020-08-09] MEDS: MAG HYDROX/AL HYDROX/SIMETH 30 ML UDC PO (14:58)
--- NOTE | 2020-08-09 16:02 | PM.PNORT ---
Progress Note: A&P Additional Plan Patient is now postop day 2. After total hip arthroplasty. Her hemoglobin dropped from 9.1 yesterday morning to 7.3 this morning. She has not been tachycardic but her blood pressure is a little bit soft. Today the last 2 pressures were 113 systolic and 95 systolic believe. The lab has just drawn another H&H. She has been up walking with therapy but feels very lightheaded and little dizzy and that is her chief complaint. The hip is feeling comfortable and she is tolerating weight-bearing without difficulty. On exam the wound is dry but the right proximal thigh is definitely a little larger than left therefore I think she has had some Bleeding deep in the hip area. She is on Eliquis. I feel strongly she does need to be on DVT prophylaxis pharmacologically as she is at a at increased risk for DVT as congestive heart failure is unknown significant risk factor for thromboembolic problems. We are giving her Eliquis 2.5 mg twice daily implant to continue this for a 5- 6 week course. If her hemoglobin is much higher this afternoon above 8 for example I would recommend continued observation. If it remains very low or lower than this morning's I would recommend transfusion and I have discussed this with her and she is in agreement with that plan. We will check new labs regardless tomorrow morning. She of her anemia is twofold. Primarily this is an acute blood loss anemia due to her hip replacement. In addition she had pre existing anemia preop. Her hemoglobin was at the lower end of normal at 12.0 , 10 days before surgery but she was dehydrated at that time. At that time her creatinine was 1.1 and BUN was 34. She takes Lasix chronically for her congestive heart failure. This morning her creatinine is down to 0.9 and her BUN is only 15 her GFR is greater than 60. This suggests that she has the appropriate intravascular volume at this time and that before surgery she was somewhat dehydrated. Therefore some of her anemia is relative to hemodilution. Subjective Subjective Date/Time Seen: 08/09/20 16:02 Objective Data Vital Signs Vital Signs: Vital Signs - 24 hr 08/08/20 16:20 08/08/20 18:00 08/08/20 20:00 Temperature 36.9 C Pulse Rate 95 78 83 Respiratory Rate 16 Blood Pressure 108/66 Pulse Oximetry 98 08/08/20 21:54 08/09/20 00:00 08/09/20 04:00 Temperature 36.3 C L Pulse Rate 77 78 84 Respiratory Rate 16 Blood Pressure 97/62 L Pulse Oximetry 100 08/09/20 05:37 08/09/20 08:00 08/09/20 08:20 Temperature 36.9 C Pulse Rate 76 94 Respiratory Rate 16 Blood Pressure 109/50 L 101/65 Pulse Oximetry 100 08/09/20 08:23 08/09/20 09:55 08/09/20 10:15 Temperature 36.2 C L Pulse Rate 65 88 Respiratory Rate 18 Blood Pressure 113/57 L Pulse Oximetry 92 100 08/09/20 12:00 08/09/20 14:13 Temperature 36.4 C L Pulse Rate 85 73 Respiratory Rate 18 Blood Pressure 92/48 L Pulse Oximetry 99 Intake/Output Intake/Output: Intake & Output 08/06/20 08/07/20 08/08/20 08/09/20 23:59 23:59 23:59 23:59 Intake Total 1335 2650 400 Output Total 650 600 Balance 1335 2000 -200 Meds/Results Medications: Active Medications Generic Name Dose Route Start Last Admin Trade Name Freq PRN Reason Stop Dose Admin Acetaminophen 1,000 mg 08/07/20 13:16 08/09/20 12:00 Acetaminophen 500 Mg Tablet PO 1,000 mg Q6HR BROOK Administration Al Hydrox/Mg Hydrox/Simethicone 30 ml 08/07/20 13:16 08/09/20 14:58 Mag Hydrox/Al Hydrox/Simeth 30 Ml Udc PO 30 ml Q6H PRN Administration Indigestion Apixaban 2.5 mg 08/08/20 09:00 08/09/20 08:23 Apixaban 2.5 Mg Tablet PO 09/11/20 21:01 2.5 mg Q12HR BROOK Administration Atorvastatin Calcium 40 mg 08/08/20 09:00 08/09/20 08:23 Atorvastatin 40 Mg Tablet PO 40 mg QAM BROOK Administration Bisacodyl 10 mg 08/07/20 13:16 Bisacodyl 10 Mg Suppository RECTAL DAILY PRN Constipation
[2020-08-09 16:04] LABS: Basophils Absolute Auto 0.1 K/mm3 (0.0-0.1); Basophils Percent Auto 0.5 % (0.2-1.2); Eosinophils Absolute Auto 0.3 K/mm3 (0-0.3); Eosinophils Percent Auto 2.2 % (0-4.4); Hematocrit 22.2 % (37.0-47.0); Hemoglobin 7.1 g/dL (12.0-15.0); Immature Granulocyte Absolute 0.06 K/mm3 (0.00-0.031); Immature Granulocyte Percent A 0.4 % (0-0.5); Lymphocytes Absolute Auto 2.07 K/mm3 (0.9-3.2); Lymphocytes Percent Auto 14.4 % (18.3-44.2); Mean Corpuscular Volume 93.7 fl (80-100); Mean Platelet Volume 10.5 fl (7.4-10.4); Monocytes Absolute Auto 1.5 K/mm3 (0.1-0.6); Monocytes Percent Auto 10.1 % (2.6-8.5); Neutrophils Absolute Auto 10.4 K/mm3 (1.3-6.7); Neutrophils Percent Auto 72.4 % (45.5-73.1); Platelet Count Result 153 k/mm3 (150-375); Red Blood Count 2.37 M/mm3 (4.2-5.4); White Blood Count 14.4 K/mm3 (4.5-10.0)
[2020-08-09] MEDS: PHARMACIST COMMUNICATION ORDER 1 EACH XX (18:02)
[2020-08-09] MEDS: SODIUM CHLORIDE 0.9% IV 250 ML 30 ML IV CONT (18:57)
[2020-08-10] VITALS (9 sets, daily range): BP systolic 90–110; BP diastolic 46–63; PULSE 67–99; RESP 15–18; TEMP 36.5–37.3; O2SAT 98–100
[2020-08-10] MEDS: ACETAMINOPHEN 500 MG TABLET 1000 MG PO ×4 (00:11→16:58)
[2020-08-10 00:33] LABS: Hematocrit 25.3 % (37.0-47.0); Hemoglobin 8.4 g/dL (12.0-15.0)
[2020-08-10 05:37] LABS: Basophils Absolute Auto 0.1 K/mm3 (0.0-0.1); Basophils Percent Auto 0.6 % (0.2-1.2); Eosinophils Absolute Auto 0.3 K/mm3 (0-0.3); Eosinophils Percent Auto 2.7 % (0-4.4); Hematocrit 25.4 % (37.0-47.0); Hemoglobin 8.2 g/dL (12.0-15.0); Immature Granulocyte Absolute 0.05 K/mm3 (0.00-0.031); Immature Granulocyte Percent A 0.4 % (0-0.5); Mean Corpuscular HGB Conc 32.3 g/dl (32-36); Mean Corpuscular Hemoglobin 28.9 pg (26-34); Mean Corpuscular Volume 89.4 fl (80-100); Mean Platelet Volume 10.7 fl (7.4-10.4); Monocytes Absolute Auto 1.2 K/mm3 (0.1-0.6); Monocytes Percent Auto 9.9 % (2.6-8.5); Neutrophils Absolute Auto 8.1 K/mm3 (1.3-6.7); Neutrophils Percent Auto 65.4 % (45.5-73.1); Platelet Count Result 150 k/mm3 (150-375); Red Blood Count 2.84 M/mm3 (4.2-5.4); Red Cell Distribution Width 15.2 % (11.5-14.5); White Blood Count 12.4 K/mm3 (4.5-10.0)
[2020-08-10 05:47] LABS: Anion Gap 5 mmol/L (8-16); Blood Urea Nitrogen 16 mg/dL (7-17); Calcium 8.1 mg/dL (8.4-10.2); Carbon Dioxide 28 mmol/L (22-30); Chloride 103 mmol/L (98-107); Estimated CRCL calculation 44 ml/min; Estimated Glomerular Filt Rate > 60; Glucose 91 mg/dL (65-105); Magnesium 2.3 mg/dL (1.6-2.3); Potassium 3.9 mmol/L (3.4-5.0); Sodium 136 mmol/L (137-145)
--- NOTE | 2020-08-10 07:01 | PM.PNORT ---
Progress Note: A&P Additional Plan POD 3 avss ,pt got 1 unit of blood last night,hgb-8.2 this am, nausea is much better ,pt has been of narcotics which was most likely the cause, pain controlled with tylenol at this point, wd-dry.mild thigh swelling. pt will work with PT today-hopefully she will comfortable and then d/c to home later today Subjective Subjective Date/Time Seen: 08/10/20 07:01 Objective Data Vital Signs Vital Signs: Vital Signs - 24 hr 08/09/20 08:00 08/09/20 08:20 08/09/20 08:23 Temperature Pulse Rate 94 65 Respiratory Rate Blood Pressure 101/65 Pulse Oximetry 08/09/20 09:55 08/09/20 10:15 08/09/20 12:00 Temperature 36.2 C L Pulse Rate 88 85 Respiratory Rate 18 Blood Pressure 113/57 L Pulse Oximetry 92 100 08/09/20 14:13 08/09/20 16:00 08/09/20 18:00 Temperature 36.4 C L 36.9 C Pulse Rate 73 77 86 Respiratory Rate 18 16 Blood Pressure 92/48 L 113/47 L Pulse Oximetry 99 99 08/09/20 18:51 08/09/20 19:07 08/09/20 20:00 Temperature 36.4 C 36.7 C Pulse Rate 86 81 81 Respiratory Rate 16 14 Blood Pressure 86/36 L 88/45 L Pulse Oximetry 99 98 08/09/20 20:15 08/09/20 21:15 08/09/20 22:15 Temperature 36.6 C 37.3 C 37.6 C Pulse Rate 84 84 79 Respiratory Rate 20 20 18 Blood Pressure 94/49 L 90/50 L 90/58 L Pulse Oximetry 98 97 98 08/09/20 23:00 08/10/20 00:00 08/10/20 01:04 Temperature 38.2 C H 36.5 C Pulse Rate 83 77 75 Respiratory Rate 18 18 Blood Pressure 90/52 L 91/46 L Pulse Oximetry 100 98 08/10/20 04:00 Temperature 36.8 C Pulse Rate 67 Respiratory Rate 18 Blood Pressure 90/46 L Pulse Oximetry 100 Intake/Output Intake/Output: Intake & Output 08/07/20 08/08/20 08/09/20 08/10/20 23:59 23:59 23:59 23:59 Intake Total 1335 2650 1930 400 Output Total 650 1450 Balance 1335 2000 480 400 Meds/Results Medications: Active Medications Generic Name Dose Route Start Last Admin Trade Name Freq PRN Reason Stop Dose Admin Acetaminophen 1,000 mg 08/07/20 13:16 08/10/20 05:54 Acetaminophen 500 Mg Tablet PO 1,000 mg Q6HR BROOK Administration Al Hydrox/Mg Hydrox/Simethicone 30 ml 08/07/20 13:16 08/09/20 14:58 Mag Hydrox/Al Hydrox/Simeth 30 Ml Udc PO 30 ml Q6H PRN Administration Indigestion Apixaban 2.5 mg 08/08/20 09:00 08/09/20 21:22 Apixaban 2.5 Mg Tablet PO 09/11/20 21:01 2.5 mg Q12HR BROOK Administration Atorvastatin Calcium 40 mg 08/08/20 09:00 08/09/20 08:23 Atorvastatin 40 Mg Tablet PO 40 mg QAM BROOK Administration Bisacodyl 10 mg 08/07/20 13:16 Bisacodyl 10 Mg Suppository RECTAL DAILY PRN Constipation Carvedilol 6.25 mg 08/08/20 09:00 08/09/20 08:23 Carvedilol 6.25 Mg Tablet PO 6.25 mg QAM BROOK Administration Famotidine 20 mg 08/07/20 21:00 08/09/20 21:22 Famotidine 20 Mg Tablet PO 20 mg Q12HR BROOK Administration Hydroxyzine HCl 50 mg 08/07/20 13:16 Hydroxyzine Hcl 25 Mg Tablet PO Q4H PRN Itching Magnesium Hydroxide 30 ml 08/07/20 13:16 Magnesium Hydroxide Susp 30 Ml Udc PO BID PRN Constipation Morphine Sulfate 2 mg 08/07/20 13:16 08/07/20 20:27 Morphine Sulfate (*Crx) 2 Mg/Ml Inj IV PUSH 2 mg Q3H PRN Administration Pain Rated 7-10 Naloxone HCl 0.1 mg 08/07/20 13:16 Naloxone Hcl 0.4 Mg/Ml Vial IV PUSH Q2M PRN Opiate Reversal Ondansetron HCl 4 mg 08/07/20 13:16 08/09/20 12:00 Ondansetron Inj 4 Mg/2 Ml Vial IV PUSH 4 mg Q4H PRN Administration Nausea And Vomiting Oxycodone HCl 5 mg 08/08/20 06:27 Oxycodone Hcl (*Crx) 5 Mg Tab Ir PO Q4H PRN Pain Rated 7-10 Polyethylene Glycol 17 gm 08/08/20 09:00 08/09/20 08:23 Polyethylene Glycol 3350 17 Gm Powd.Pack PO 17 gm QAM BROOK Administration Senna/Docusate Sodium 2 tab 08/07/20 17:00 08/09/20 18:01 Senna/Docusate Sodium Tablet PO 2 tab BID BROOK Administration Radiology Resu
--- NOTE | 2020-08-10 07:04 | PM.DS ---
DS: Admitting Diagnosis Admitting Diagnosis Admitting Diagnosis: OA right hip DS: Summary Time Spent with Patient Time attestation: 70-year-old female who underwent anterior right total hip arthroplasty. She was scheduled to be discharged on 08/08. She was having severe nausea and difficulty with working with physical therapy. She was kept overnight. The next day she was still having nausea but also her hemoglobin went down to 7.1 very weak after another night because of the anemia. We did check additional BMP to make sure that her sodium was not too low causes nausea we also guaiac to her stools check for blood loss. She did receive 1 unit of packed red blood cells on 08/09 her hemoglobin subsequently went up to 8.2 on postop day 3. She has been also narcotics for last 24 hours and only using Tylenol for pain at this point her nausea is minimal. She will work with therapy today and hopefully will be comfortable to the point where she will be ready to discharge to home later today on 08/10. She will go home again on the Tylenol for pain control, we are not using Celebrex on her due to her cardiac history. She is on her Eliquis for DVT prophylaxis. Her wound has been dry, she only has mild swelling in the thigh overall. Patient was advised any questions or concerns when she goes home she should call the office. DS: Data Data Completed and Pending Labs on day of discharge: Labs from last 24 hours 08/10/20 08/10/20 08/10/20 05:11 05:11 00:24 WBC 12.4 H RBC 2.84 L Hgb 8.2 L 8.4 L Hct 25.4 L 25.3 L MCV 89.4 MCH 28.9 MCHC 32.3 RDW 15.2 H Plt Count 150 MPV 10.7 H Immature Gran % (Auto) 0.4 Neut % (Auto) 65.4 Lymph % (Auto) 21.0 Camas % (Auto) 9.9 H Eos % (Auto) 2.7 Baso % (Auto) 0.6 Lymph # (Auto) 2.60 Camas # (Auto) 1.2 H Eos # (Auto) 0.3 Baso # (Auto) 0.1 Abs Immat Gran (auto) 0.05 H Absolute Neuts (auto) 8.1 H Absolute Nucleated RBC 0.0 Nucleated RBC % 0.0 Sodium 136 L Potassium 3.9 Chloride 103 Carbon Dioxide 28 Anion Gap 5 L BUN 16 Creatinine 0.90 Estim Creat Clear Calc 44 Estimated GFR > 60 Glucose 91 Calcium 8.1 L Magnesium 2.3 Blood Type Antibody Screen Crossmatch 08/09/20 08/09/20 08/09/20 16:42 15:48 05:32 WBC 14.4 H RBC 2.37 L Hgb 7.1 L Hct 22.2 L MCV 93.7 MCH 30.0 MCHC 32.0 RDW 15.0 H Plt Count 153 MPV 10.5 H Immature Gran % (Auto) 0.4 Neut % (Auto) 72.4 Lymph % (Auto) 14.4 L Cam[place] % (Auto) 10.1 H Eos % (Auto) 2.2 Baso % (Auto) 0.5 Lymph # (Auto) 2.07 Camas # (Auto) 1.5 H Eos # (Auto) 0.3 Baso # (Auto) 0.1 Abs Immat Gran (auto) 0.06 H Absolute Neuts (auto) 10.4 H Absolute Nucleated RBC 0.0 Nucleated RBC % 0.0 Sodium 136 L Potassium 3.8 Chloride 101 Carbon Dioxide 30 Anion Gap 5 L BUN 15 Creatinine 0.90 Estim Creat Clear Calc 44 Estimated GFR > 60 Glucose 94 Calcium 8.3 L Magnesium Blood Type A Positive Antibody Screen Negative Crossmatch See Detail Discharge Plan Discharge Attending physician on discharge: Jeramie Tejada Consulting providers: Rambo Enriquez ; Nick Lynch Discharging Clinician: Ant Lamb Patient Disposition: Home, Self-Care Activity: may shower, follow weight bearing status and other - see discharge instructions Diet: as tolerated Wound Care Instructions: follow printed instructions Discharge Instructions: JERAMIE TEJADA M.D [facility] [address] [place] [id number] POST-OPERATIVE DISCHARGE INSTRUCTIONS ANTERIOR TOTAL HIP ARTHROPLASTY 1. Move toes/feet up and down every hour while awake. 2. Be up walking every hour while awake. 3. Use cane in hand opposite of side of hip surgery or walker as comfort allows. Avoid sitting in
[2020-08-10] MEDS: FAMOTIDINE 20 MG TABLET PO (08:03)
[2020-08-10] MEDS: SENNA/DOCUSATE SODIUM TABLET 2 TAB PO ×2 (08:03→16:58)
[2020-08-10] MEDS: polyethylene glycoL 3350 17 GM POWD.PACK PO (08:03)
[2020-08-10] MEDS: ATORVASTATIN 40 MG TABLET PO (08:03)
[2020-08-10] MEDS: APIXABAN 2.5 MG TABLET PO (08:03)
[2020-08-10] MEDS: ONDANSETRON INJ 4 MG/2 ML VIAL IV PUSH (08:42)
--- NOTE | 2020-08-10 08:57 | PCOTNOTE ---
Attempted to see patient this am, however patient declined stating, I feel like crap. I'm real nauseous and dizzy just laying here.
--- NOTE | 2020-08-10 09:38 | PM.CNCAR ---
Assessment and Plan Assessment and plan (1) Hypotension: Code(s): I95.9 - Hypotension, unspecified Status: Acute Assessment and Plan: Although sxs may be multifactorial secondary to postoperative anemia, medications, intravascular volume depletion, clinically appears more suggestive of vestibular etiology as she describes a prominent spinning sensation turning her head or position change even lying in bed. BMP is not highly suggestive of intravascular volume depletion and she was not orthostatic this morning. BP is improved this morning on repeat check, yet patient remains symptomatic even at rest. Will avoid additional IVF particularly if BP stable. Observe tolerance with PT/OT. Continue to hold Coreg, Lasix, and Lisinopril. Anticipate slow reintroduction as an outpatient. Transfusion only as needed, s/p 1PRBC last night with appropriate increment. Monitor H/h for evidence of bleeding on Eliquis for DVT prophylaxis. Vestibular exercises, modified Erika's. Slowly reintroduce CV meds as outpatient start Coreg 3.125mg BID in 2 days, monitor BP as outpatient and call with readings and sxs. Plan to then resume Lasix and lower dose Lisinopril as BP allows. Schedule 2 week follow in the office. If BP remains stable and vertigo improved disposition per Orthopedic surgery. From a cardiac perspective patient is otherwise stable yet remains off her standard medications. (2) Cardiomyopathy: Qualifiers: Cardiomyopathy type: unspecified Qualified Code(s): I42.9 - Cardiomyopathy, unspecified Code(s): I42.9 - Cardiomyopathy, unspecified Status: Chronic Assessment and Plan: She appears relatively euvolemic and is otherwise compensated. 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 Biventricular ICD placed 2014. Patient states she wishes to transfer care to [place] post discharge. While anticipate she would tolerate additional IV fluid, however, need to be cautious and monitor her volume status closely. Per records see echo performed July 24, 2020 showed EF 35-40% whereas May 2018 normal LV function. There is documentation of a history of atrial fibrillation resolved while she was on amiodarone which was discontinued years ago due to abnormal PFT's (h/o tobacco abuse). She has a history of nonobstructive CAD 2014 30% lad stenosis moderate MR echo 2016 [id number] by echo July 2020. (3) Postoperative anemia: Code(s): D64.9 - Anemia, unspecified Status: Acute Assessment and Plan: Patient stable with appropriate increment after 1 unit PRBC last night. Hemoglobin of July 27 appears to be in setting of intravascular volume depletion elevated BUN and creatinine at that time. (4) AICD (automatic cardioverter/defibrillator) present: Code(s): Z95.810 - Presence of automatic (implantable) cardiac defibrillator Status: Acute Assessment and Plan: Normal device function biventricular pacing, occasional PVCs. no acute issues. (5) S/P total hip arthroplasty: Qualifiers: Laterality: right Qualified Code(s): Z96.641 - Presence of right artificial hip joint Code(s): Z96.649 - Presence of unspecified artificial hip joint Status: Acute Assessment and Plan: postoperative management per Orthopedic surgery. History of Present Illness History of Present Illness Consult date/time: Date of Service: 08/10/20 09:38 Cardiology consultation at the request of Dr. Izaguirre for our opinion regarding Requesting physician: Jeramie Izaguirre MD Consult reason: Other (hypotension) Reason For Visit: OA right hip Narrative: Patient is a very pleasant 70-year-old female with a past history significant for nonischemic cardiomyopathy status post biventricular ICD, histor
--- NOTE | 2020-08-10 13:15 | PM.IMPN ---
Progress Note: A&P Assessment and Plan (1) S/P total hip arthroplasty: Qualifiers: Laterality: right Qualified Code(s): Z96.641 - Presence of right artificial hip joint Code(s): Z96.649 - Presence of unspecified artificial hip joint Status: Acute Assessment and Plan: POD#3 s/p elective right total hip arthroplasty due to severe OA. Wound care, pain control, DVT prophylaxis per Orthopedic surgery. Continue PT/OT. Leukocytosis improved. Discharge disposition per the primary service. (2) HTN (hypertension): Qualifiers: Hypertension type: essential hypertension Qualified Code(s): I10 - Essential (primary) hypertension Code(s): I10 - Essential (primary) hypertension Status: Chronic Assessment and Plan: History of HTN now with hypotension postoperatively. Last BP 102/63 this morning. The primary service has consulted Cardiology for hypotension this morning. Her lisinopril, Lasix and carvedilol held due to low BP. Cardiology has plans to slowly reintroduce these medications as BP tolerates on outpatient basis. 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 She has met Dr. Montoya this morning and plans to transfer care with him. Known EF 35-40%; cleared by Dr Santana prior to surgery. She has biventricular pacer. See above. (4) CKD (chronic kidney disease) stage 3, GFR 30-59 ml/min: Qualifiers: Chronic kidney disease stage 3 subtype: unspecified whether 3a or 3b Qualified Code(s): N18.30 - Chronic kidney disease, stage 3 unspecified Code(s): N18.30 - Chronic kidney disease, stage 3 unspecified Status: Chronic Assessment and Plan: Stable. Cr 0.9 today. (5) Hypercholesterolemia: Code(s): E78.00 - Pure hypercholesterolemia, unspecified Status: Chronic Assessment and Plan: Continue home statin therapy. Additional Plan Thank you for allowing me to participate in this patient's care. We will follow with you while she is here. Subjective Date/time seen: 08/10/20 13:15 Interval history: Ms. Renteria is a 70yo F seen in follow up POD#3 right total hip arthroplasty. She reports her pain is currently around 6 out of 10 severity at rest. She notes that she has started to become dizzy while standing and moving positions with therapy. She denies headache, shortness of breath, chest pain or palpitations. She is tolerating oral intake without nausea or vomiting. Review of Systems Review of Systems: All systems reviewed & are unremarkable except as noted in HPI and below Exam Narrative: Exam Narrative: General: Female resting comfortably in semi-rudd's in bed in no acute distress. HEENT: Normocephalic, EOMI, oral mucosa moist. Cardiovascular: Rate and rhythm are regular. Telemetry review shows paced rhythm HR in 70s. Respiratory: Lungs clear to auscultation in anterolateral lung ruiz. Non-labored breathing. Abdomen: Soft, non-tender, non-distended, bowel sounds present but hypoactive Extremities: Peripheral pulses intact. No edema. Right lower extremity is neurovascularly intact distal to the surgical site. GRICELDA calves nontender to palpation. Neuro: No focal neurological deficits. Speech is clear. Objective Data Vital Signs Vital Signs: Last Vital Signs Temp 99.1 F 08/10/20 09:57 Pulse 99 08/10/20 12:00 Resp 15 08/10/20 09:57 BP 110/53 L 08/10/20 09:58 Pulse Ox 99 08/10/20 09:57 Intake/Output Intake/Output: Intake & Output 10
[2020-08-10] MEDS: MAG HYDROX/AL HYDROX/SIMETH 30 ML UDC PO (13:40)
== END 2020-08-10 17:35 | disposition home or self-care (01) ==
LOC: ANHSURGERY 09:32 → ANH2MED 09:32
PROVIDERS: Physician Assistant; Physician Assistant Surgical; Admitting Provider Orthopaedic Surgery; PCP Physician Assistant; Visit Provider Orthopaedic Surgery
PROC: (CPT 27130; principal; 2020-08-07 07:30)
DX: M16.11 Unilateral primary osteoarthritis, right hip (principal); D64.9 Anemia, unspecified; I95.9 Hypotension, unspecified; I42.9 Cardiomyopathy, unspecified; I13.0 Hypertensive heart and chronic kidney disease with heart failure and stage 1 through stage 4 chronic kidney disease, or unspecified chronic kidney disease; N18.30 Chronic kidney disease, stage 3 unspecified; I50.22 Chronic systolic (congestive) heart failure; I25.10 Atherosclerotic heart disease of native coronary artery without angina pectoris; E78.00 Pure hypercholesterolemia, unspecified; Z95.810 Presence of automatic (implantable) cardiac defibrillator; Z87.891 Personal history of nicotine dependence; Z79.01 Long term (current) use of anticoagulants
CPT/HCPCS: 27130; 36415; 36430; 73501; 80048; 82306; 83735; 85014; 85018; 85025; 86850; 86900; 86901; 86923; 96365; 96366; 96367; 96375; 96376; 97110; 97116; 97161; 97165; 97530; 97535; A9270; C1713; C1776; G0378; G0379; J0171; J0330; J0690; J1100; J1630; J2250; J2270; J2370; J2405; J2704; J2710; J2795; J3010; J3370; J7050; J7120; P9016

== ENCOUNTER → 2022-01-22 14:08 | Outpatient (CLI) | payer OTHER, SELFPAY ==
--- NOTE | ~2022-01-22 | XR_ITS ---
EXAMINATION: XR foot LT min 3V DATE: 01/22/2022 14:25 INDICATION: Lateral left foot pain. TECHNIQUE: 4 views of left foot were obtained. COMPARISON: None. FINDINGS: There is moderate hallux valgus. No fracture. There is mild osteoarthritis of first metatar sophalangeal joint. There is an enthesophyte at plantar aspect of calcaneal tuberosity. IMPRESSION: 1. Moderate hallux valgus. 2. Mild osteoarthritis of first metatarsophalangeal joint. Reviewed, dictated and finalized at location A.
== END ==
PROVIDERS: PCP Physician Assistant; Visit Provider Physician Assistant
DX: M19.072 Primary osteoarthritis, left ankle and foot (principal); M20.12 Hallux valgus (acquired), left foot
CPT/HCPCS: 73630

== ENCOUNTER 2022-08-14 12:51 | Outpatient (CLI) | payer OTHER, SELFPAY ==
[2022-08-14 14:10] LABS: SARS-CoV-2 RNA PCR Negative
== END 2022-08-14 12:52 | disposition home or self-care (01) ==
LOC: ANHLAB 12:56
PROVIDERS: PCP Physician Assistant; Visit Provider Internal Medicine Cardiovascular Disease
DX: Z01.810 Encounter for preprocedural cardiovascular examination (principal); Z20.822 Contact with and (suspected) exposure to COVID-19
CPT/HCPCS: U0003; U0005

== ENCOUNTER → 2023-02-04 14:51 | Outpatient (CLI) | payer OTHER, SELFPAY ==
--- NOTE | ~2023-02-04 | MM_ITS ---
EXAMINATION: MM screening ankur BI w german HISTORY: Screening mammogram TECHNIQUE: Craniocaudal and mediolateral oblique 3-D tomosynthesis images were obtained and synthetic 2-D images were generated. CAD analysis was submitted and interpreted. COMPARISON: No prior mammogram is available for comparison at this institution. BREAST PARENCHYMAL COMPOSITION:The breasts are heterogeneously dense, which may obscure small masses. FINDINGS: There is a focal asymmetry the central left breast on MLO view. No definite parenchymal abn ormality of the right breast seen. Bilateral benign calcifications are present. No suspicious calcifi cations seen. IMPRESSION: Focal asymmetry central left breast on MLO view. Spot compression and true lateral views, and possibl y ultrasound, are recommended for further evaluation. BI-RADS Category 0: Incomplete: Needs additional imaging evaluation. Reviewed, dictated and finalized at [facility]. IMPRESSION: Focal asymmetry central left breast on MLO view. Spot compression and true late ral views, and possibly ultrasound, are recommended for further evaluation. BI-RADS Category 0: Incomplete: Needs additional imaging evaluation.
== END ==
PROVIDERS: PCP Physician Assistant; Visit Provider Physician Assistant
DX: Z12.31 Encounter for screening mammogram for malignant neoplasm of breast (principal); R92.8 Other abnormal and inconclusive findings on diagnostic imaging of breast
CPT/HCPCS: 77063; 77067

== ENCOUNTER → 2023-12-15 12:26 | Outpatient (CLI) | payer OTHER, SELFPAY ==
--- NOTE | ~2023-12-15 | XR_ITS ---
EXAMINATION: XR hip LT min 2V DATE: 12/15/2023 12:45 INDICATION: Left hip pain. TECHNIQUE: 2 views of left hip were obtained. COMPARISON: Pelvis radiograph 08/07/2020 FINDINGS: Bone alignment is normal. No fracture. There is mild left hip osteoarthritis. There is glo drocalcinosis of the labrum. IMPRESSION: 1. Mild left hip osteoarthritis. Reviewed, dictated and finalized at location A. 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
== END ==
LOC: EXPCRAD 12:31
PROVIDERS: PCP Physician Assistant; Visit Provider Physician Assistant
DX: M16.12 Unilateral primary osteoarthritis, left hip (principal)
CPT/HCPCS: 73502

== ENCOUNTER → 2024-01-22 10:08 | Outpatient (CLI) | payer OTHER, SELFPAY | LOC: EXPCRAD 10:12 | PROVIDERS: PCP Physician Assistant; Visit Provider Physician Assistant | DX: M79.672 Pain in left foot (principal) | CPT/HCPCS: 73630 ==

== ENCOUNTER 2024-03-24 15:20 | Outpatient (CLI) | payer OTHER, SELFPAY ==
--- NOTE | ~2024-03-24 | MM_ITS ---
EXAMINATION: MM screening ankur BI w german HISTORY: Screening TECHNIQUE: Craniocaudal and mediolateral oblique 3-D tomosynthesis images were obtained and synthetic 2-D images were generated. CAD analysis was submitted and interpreted. COMPARISON: No prior mammogram is available for comparison at this institution. BREAST PARENCHYMAL COMPOSITION: Not dense: There are scattered areas of fibroglandular density. FINDINGS: There are developing asymmetry of the left breast. The right breast is stable without evide nce for malignancy. IMPRESSION: 1. Developing left breast asymmetry centrally in the left breast on MLO view. 2. Additional mammographic views and possible breast ultrasound are recommended. BI-RADS Category 0: Incomplete: Needs additional imaging evaluation. Reviewed, dictated and finalized at location B. IMPRESSION: 1. Developing left breast asymmetry centrally in the left breast on MLO view. 2. Additional mammographic views and possible breast ultrasound are recommended . BI-RADS Category 0: Incomplete: Needs additional imaging evaluation.
== END 2024-03-24 15:21 ==
LOC: MICIMG 15:21
PROVIDERS: PCP Physician Assistant; Visit Provider Physician Assistant
DX: Z12.31 Encounter for screening mammogram for malignant neoplasm of breast (principal); R92.8 Other abnormal and inconclusive findings on diagnostic imaging of breast
CPT/HCPCS: 77063; 77067

== ENCOUNTER 2024-05-13 08:56 | Outpatient (CLI) | payer OTHER, SELFPAY ==
--- NOTE | ~2024-05-13 | MMUS_ITS ---
EXAMINATION: MM diagnostic ankur LT w german, US breast LT complete HISTORY: Follow-up left breast asymmetries TECHNIQUE: Additional 3-D tomosynthesis images of the left breast were performed and synthetic 2-D im ages were generated. CAD analysis was submitted and interpreted. High resolution complete left breast ultrasound was performed. COMPARISON: Comparison to multiple prior studies sequentially, with oldest reviewed study dated 02/09. BREAST PARENCHYMAL COMPOSITION: Not dense: There are scattered areas of fibroglandular density. FINDINGS: MAMMOGRAPHIC FINDINGS: There are no discrete masses, calcifications or architectural distortion in the left breast to sugges t malignancy. Left breast asymmetry seen on prior examination are less apparent with spot compression views, compatible with superimposed fibroglandular tissue. ULTRASOUND: Complete US of all 4 quadrants of the left breast and retroareolar region was reviewed. Normal hetero geneous echotexture without focal solid or cystic mass. IMPRESSION: 1. No evidence for malignancy in the left breast. 2. Routine yearly screening mammogram and regular clinical breast examination are recommended. BI-RADS Category 1: Negative Reviewed, dictated and finalized at location B. IMPRESSION: 1. No evidence for malignancy in the left breast. 2. Routine yearly screening mammogram and regular clinical breast examination a re recommended. BI-RADS Category 1: Negative
== END 2024-05-13 08:57 ==
PROVIDERS: PCP Physician Assistant; Visit Provider Nurse Practitioner Family
DX: R92.8 Other abnormal and inconclusive findings on diagnostic imaging of breast (principal)
CPT/HCPCS: 76641; 77061; 77065; G0279

== ENCOUNTER 2025-03-28 10:24 | Outpatient (CLI) | payer OTHER, SELFPAY ==
--- NOTE | ~2025-03-28 | DEXA_ITS ---
Bone Density Report Name: ROBBI BRIGGS Age: 74 Sex: Female Ethnicity: White Date of : 1950 Indication: postmenopausal; screening for osteoporosis; height loss; prior fracture; hysterectomy; Referring Provider: REGINE, MUNIRA Study: Bone densitometry was performed. Exam Date: March 28, 2025 Accession number: [id number] Bone Density: Region BMD T-score Z-score Classification AP Spine(L1-L4) 0.987 -0.5 1.9 Normal Femoral Neck (Left) 0.607 -2.2 -0.1 Osteopenia Total Hip (Left) 0.775 -1.4 0.5 Osteopenia World Health Organization criteria for BMD impression classify patients as: Normal (T-score at or above -1.0), Osteopenia (T-score between -1.0 and -2.5), or Osteoporosis (T-score at or below -2.5). 10-year Fracture Risk: FRAX not reported because: Prior hip or vertebral fracture Clinical Information Provided by Patient: Have had a previous hip or vertebral fracture Has had a low trauma fracture Has used the following medications: Vitamin D, Calcium Has the following medical conditions: Hysterectomy Patient maximum height was 66 Menopause Age: 41 Drinks caffeinated beverages Onset of menses at age 10 Number of children 2 Impression: The patient has low bone mass, based on the Left Femoral Neck T-score. The patient has risk factors, including: previous fracture. Discussion: INCREASED RISK OF FRACTURE DUE TO HISTORY OF FRACTURE. The patient's previous fracture puts the patient at high risk of a future fracture. In untreated patients, the risk of osteoporotic fracture increases approximately two-fold for each 1.0 SD decrease in T-score. Low bone density is not the only risk factor for fracture; also consider factors such as patient's age, frailty or poor health, risk of falling, risk of injury, previous osteoporotic fracture, family history of osteoporosis, cigarette smoking, low body weight, etc. Not everyone with a low trauma fracture has osteoporosis; osteomalacia and other metabolic bone disorders should also be considered. Patients who have osteoporosis should be evaluated for specific diseases and conditions (secondary causes) that may cause or contribute to bone loss and fracture risk. National Osteoporosis Foundation (NOF) recommends pharmacologic intervention for patients with a prior hip or vertebral fracture regardless of BMD T-score. The patient should follow a healthful lifestyle (good nutrition with adequate calcium and vitamin D, and appropriate weight-bearing exercise). Follow-Up: Consider a repeat BMD and Vertebral Fracture Assessment (VFA) exam in 2 years or sooner if medically necessary, to reassess this patient's status. Reported by: ANGELO on 03/28/2025 10:50:00 AM. Reviewed, dictated and finalized at location A.
--- NOTE | ~2025-03-28 | MM_ITS ---
EXAMINATION: MM screening ankur BI w german HISTORY: Screening TECHNIQUE: Craniocaudal and mediolateral oblique 3-D tomosynthesis images were obtained and synthetic 2-D images were generated. CAD analysis was submitted and interpreted. COMPARISON: Comparison to multiple prior studies sequentially, with oldest reviewed study dated 02/09. BREAST PARENCHYMAL COMPOSITION: Dense: The breasts are heterogeneously dense, which may obscure small masses FINDINGS: There is no evidence of suspicious mass, calcification, or architectural distortion to sugg est malignancy in either breast. There has been no suspicious interval change. IMPRESSION: 1. No mammographic evidence of malignancy. 2. Recommend routine screening mammography in one year. BI-RADS Category 1: Negative Reviewed, dictated and finalized at location B.
== END 2025-03-28 10:25 | disposition home or self-care (01) ==
LOC: MICIMG 10:26
PROVIDERS: PCP Physician Assistant; Visit Provider Physician Assistant
DX: Z12.31 Encounter for screening mammogram for malignant neoplasm of breast (principal); M85.89 Other specified disorders of bone density and structure, multiple sites; Z78.0 Asymptomatic menopausal state; Z13.820 Encounter for screening for osteoporosis
CPT/HCPCS: 77063; 77067; 77080